=== PATIENT | male | born 1955 | race Caucasian/White ===

== ENCOUNTER → 2016-07-01 | Outpatient (CLI) | payer BC ==
--- NOTE | 2016-07-01 11:44 | DIAGNOSTIC IMAGING REPORT ---
MRI LUMBAR SPINE W/O CONTRAST CLINICAL HISTORY: Lower and mid back pain. History of discectomy and spinal fusion. TECHNIQUE: Sagittal and axial T1, T2 and STIR images were obtained. COMPARISON STUDY: No previous studies for comparison. OBSERVATIONS: The vertebral bodies and posterior elements appear intact. There is no abnormal bony signal present to suggest a marrow replacement process. L1-2: No disc protrusions or extrusions. No evidence of spinal canal or neural foraminal compromise. L2-3: There is a mild circumferential disc bulge. There is slight flattening of the anterior thecal sac but no significant spinal or foraminal stenosis L3-4: There is a circumferential disc bulge present. There is mild triangular spinal stenosis. There is no significant foraminal narrowing L4-5: There are postsurgical changes of a discectomy and interbody fusion. There is posterior pedicle screw fixation with L4 and L5 pedicle screws. There is no significant spinal or foraminal stenosis. L5-S1: There is a minor asymmetric right-sided disc bulge. There is no significant spinal or foraminal stenosis. The conus medullaris and cauda equina appear normal. IMPRESSION: 1. Postsurgical changes of an L4-5 discectomy interbody fusion and posterior pedicle screw fixation 2. Degenerative changes. Circumferential L3-4 disc bulge with secondary mild spinal stenosis Electronically signed by: Lanre Davis M.D. 07/01/2016 11:43 AM Dictated Date/Time: 07/01/2016 11:15 AM
--- NOTE | 2016-07-01 13:33 | DIAGNOSTIC IMAGING REPORT ---
MRI OF THE THORACIC SPINE WITHOUT CONTRAST CLINICAL HISTORY: Mid and lower back pain. COMPARISON: None. TECHNIQUE: Utilizing a 1.5 Zenia magnet and dedicated coil, multiplanar, multiecho imaging of the thoracic spine was performed without IV contrast. FINDINGS: Alignment of the thoracic spine is anatomic. Vertebral body heights are maintained. No intracanalicular mass or fluid collection is present. Paravertebral soft tissues are unremarkable. Thoracic cord signal and caliber are normal. There is a tiny central disc protrusion at T6-T7. There is mild narrowing of the central canal. This indents the ventral aspect of the cord. Otherwise, the central canal and neural foramen are patent with the thoracic spine. No additional disc herniations are present. A 9 mm T2 hyperintense T11 vertebral body lesion is likely benign. A T1 and T2 hyperintense lesion along the inferior endplate of T9 suggest a hemangioma or focal fat. IMPRESSION: 1. Tiny central disc protrusion at T6-T7. Minimal narrowing of the central canal. Otherwise, unremarkable MRI of the thoracic spine. 2. Normal thoracic cord signal and caliber. Electronically signed by: Florin Whatley M.D. 07/01/2016 1:31 PM Dictated Date/Time: 07/01/2016 11:15 AM
== END | disposition home or self-care (01) ==
LOC: C.MRI 09:48
PROVIDERS: ATTEND Family Medicine
DX: M47.896 Other spondylosis, lumbar region (principal); M54.6 Pain in thoracic spine; Z98.1 Arthrodesis status